=== PATIENT | male | born 1975 | race Caucasian/White ===

== ENCOUNTER 2021-04-28 09:26 | Emergency (ER) | payer SELFPAY ==
[~2021-04-28] VITALS: Ht 172.7 cm; Wt 70.5 kg
--- NOTE | 2021-04-28 09:39 | PHYS DOC ---
Adult General Chief Complaint Chief Complaint: LOWER EXT PAIN HPI HPI Patient is a 45-year-old male presenting via POV for bilateral lower extremity issues. This is a chronic issue. States that he has had approximately 1 year of lower extremity swelling and pain that has become increasingly more painful to walk on without any trauma. States he has not seen a primary care provider in the past 13 years and subsequently not on any medications. Does admit to ongoing methamphetamine abuse. Reports over the past 48 hours he has noticed increased redness to bilateral lower extremities with more pain with ambulation prompting him to come in for evaluation Review of Systems Review of Systems Fourteen body systems of review of systems have been reviewed. See HPI for pertinent positives and negative responses, other cardona all other systems are negative, non-pertinent or non-contributory Physical Exam Physical Exam Constitutional: Well developed, well nourished, no acute distress, non-toxic appearance. HENT: Normocephalic, atraumatic, bilateral external ears normal, oropharynx moist, no oral exudates, nose normal. Eyes: PERRLA, EOMI, conjunctiva normal, no discharge. Neck: Normal range of motion, no tenderness, supple, no stridor. Cardiovascular: Heart rate regular per monitor Lungs & Thorax: No respiratory distress or accessory muscle use, bilateral chest rise Abdomen: Abdomen soft, non-tender, bowel sounds present in all quadrants, no guarding or rebound, nonacute abdomen. Skin: Warm, dry, there is no streaking and/or migrating lymphangitis up bilateral lower extremities, there is generalized redness circumferentially a round entirety of bilateral lower extremities from toes proximately to superior portions of bilateral malleoli, no rash. Back: No tenderness, no CVA tenderness. Extremities: No cyanosis, no clubbing, ROM intact, 1+ pitting lower extremity edema bilaterally with tenderness on ventral aspects with otherwise 2+ DP and PT pulses. Neurologic: Alert and oriented X 3, grossly normal motor & sensory function, no focal deficits noted. Psychologic: Affect normal, judgement normal, mood normal. Current Patient Data Vital Signs Vital Signs Date Time Temp Pulse Resp B/P (MAP) Pulse Ox O2 Delivery O2 Flow Rate FiO2 04/28/21 09:45 97.9 114 20 145/94 (111) 98 Room Air Vital Signs Date Time Temp Pulse Resp B/P (MAP) Pulse Ox O2 Delivery O2 Flow Rate FiO2 04/28/21 09:45 97.9 114 20 145/94 (111) 98 Room Air Lab Results Laboratory Tests Test 04/28/21 10:40 White Blood Count 12.7 x10^3/uL Red Blood Count 4.62 x10^6/uL Hemoglobin 13.1 g/dL Hematocrit 39.5 % Mean Corpuscular Volume 85 fL Mean Corpuscular Hemoglobin 28 pg Mean Corpuscular Hemoglobin Concent 33 g/dL Red Cell Distribution Width 14.5 % Platelet Count 256 x10^3/uL Neutrophils (%) (Auto) 86 % Lymphocytes (%) (Auto) 7 % Monocytes (%) (Auto) 6 % Eosinophils (%) (Auto) 1 % Basophils (%) (Auto) 1 % Neutrophils # (Auto) 10.9 x10^3uL Lymphocytes # (Auto) 0.9 x10^3/uL Monocytes # (Auto) 0.7 x10^3/uL Eosinophils # (Auto) 0.1 x10^3/uL Basophils # (Auto) 0.1 x10^3/uL Sodium Level 133 mmol/L Potassium Level 3.9 mmol/L Chloride Level 97 mmol/L Carbon Dioxide Level 28 mmol/L Anion Gap 8 Blood Urea Nitrogen 24 mg/dL Creatinine 1.1 mg/dL Estimated GFR (Cockcroft-Gault) 73.1 Glucose Level 90 mg/dL Calcium Level 8.8 mg/dL C-Reactive Protein 61.3 mg/L EKG EKG [] Radiology/Procedures Radiology/Procedures EXAM: XR BILAT FEET 3 VIEWS 04/28/2021 10:46 AM CLINICAL INDICATION: Edema, ventral foot pain COMPARISON: None TECHNIQUE: AP, oblique, and lateral views of the right left foot. FINDINGS: There are no acute fractures. There is mild hallux valgus bilaterally. Small marginal erosions of both great toe proximal phalanges at the IP joints. Joint spaces are maintained. Bone mineralization is normal. There are bilateral accessory navicular ossicles. Left os peroneum. Mild dorsal soft tissue swelling of the forefeet. There is sequela of old right lateral ankle injury. IMPRESSION: 1. No acute osseous abnormality. 2. Erosions at the great toe IP joint bilaterally suspicious for inflammatory or crystalline arthropathy. 3. Mild dorsal soft tissue swelling of the forefeet. Electronically signed by: Elsie Garcia MD (04/28/2021 10:57 AM) [id number] Heart Score C/O Chest Pain: No Risk Factors: Risk Factors: DM, Current or recent (<one month) smoker, HTN, HLP, family history of CAD, obesity. Risk Scores: Risk Factors: DM, Current or recent (<one month) smoker, HTN, HLP, family history of CAD, obesity. Course & Med Decision Making Course & Med Decision Making ABCs unremarkable HPI physical exam and comprehensive ER work-up nonconcerning for any emergent or surgical issues Joint decision made to start antibiotics with close PCP follow-up for further outpatient work-up given history of illicit drug abuse and bilateral lower extremity edema. Discussed likely need for outpatient echocardiogram etc. Strict return precautions discussed at length prior to ER departure Angus Disclaimer Angus Disclaimer This electronic medical record was generated, in whole or in part, using a voice recognition dictation system. Departure Departure: Impression: Primary Impression: Cellulitis Additional Impressions: Lower extremity pain Lower extremity edema Disposition: HOME / SELF CARE / HOMELESS Condition: STABLE Referrals: PCP,LORAINE (PCP) Additional Instructions: You were seen for an infection called cellulitis. You should erica the area of redness when you get home. If your redness spreads past the marked area at 24 hours you should have it evaluated again. You do not have an abscess right now but you could develop one. If so you will need to have it drained. You should return to the ED immediately if you develop worsening pain, fever, swelling, redness, drainage, any sign of abscess, or any other new or concerning symptoms. Take the entire course of antibiotics as prescribed. Scripts Naproxen (NAPROXEN) 500 Mg Tablet 1 TAB PO BID for pain for 5 Days, #10 TAB 0 Refills Prov: IGLESIA SCHUSTER DO 04/28/21 Cephalexin (CEPHALEXIN) 500 Mg Tablet 1 TAB PO QID for CELLULITIS, #40 TAB Prov: IGLESIA SCHUSTER DO 04/28/21 Problem Qualifiers IGLESIA SCHUSTER DO Apr 28, 2021 09:39
[2021-04-28 09:45] VITALS: BP 145/94
[2021-04-28 10:50] LABS: BASO # 0.1 x10^3/uL (0.0-0.2); BASO % 1 % (0-3); EOS # 0.1 x10^3/uL (0.0-0.7); EOS % 1 % (0-3); HEMATOCRIT 39.5 % (39.0-53.0); HEMOGLOBIN 13.1 g/dL (13.0-17.5); LYMPH # 0.9 x10^3/uL (1.0-4.8); LYMPH % 7 % (24-48); MEAN CORPUSCULAR HEMOGLOBIN 28 pg (25-35); MEAN CORPUSCULAR HGB CONC 33 g/dL (31-37); MEAN CORPUSCULAR VOLUME 85 fL (79-100); MONO # 0.7 x10^3/uL (0.0-1.1); MONO % 6 % (0-9); NEUT # 10.9 x10^3uL (1.8-7.7); NEUT % 86 % (31-73); PLATELET COUNT 256 x10^3/uL (140-400); RED BLOOD COUNT 4.62 x10^6/uL (4.30-5.70); RED CELL DISTRIBUTION WIDTH 14.5 % (11.5-14.5); WHITE BLOOD COUNT 12.7 x10^3/uL (4.0-11.0)
[2021-04-28 10:58] LABS: CALCIUM 8.8 mg/dL (8.5-10.1); CREATININE 1.1 mg/dL (0.7-1.3); GFR 73.1; POTASSIUM 3.9 mmol/L (3.5-5.1)
--- NOTE | 2021-04-28 10:59 | RAD ---
EXAM: XR BILAT FEET 3 VIEWS 04/28/2021 10:46 AM CLINICAL INDICATION: Edema, ventral foot pain COMPARISON: None TECHNIQUE: AP, oblique, and lateral views of the right left foot. FINDINGS: There are no acute fractures. There is mild hallux valgus bilaterally. Small marginal erosi ons of both great toe proximal phalanges at the IP joints. Joint spaces are maintained. Bone minerali zation is normal. There are bilateral accessory navicular ossicles. Left os peroneum. Mild dorsal sof t tissue swelling of the forefeet. There is sequela of old right lateral ankle injury. IMPRESSION: 1. No acute osseous abnormality. 2. Erosions at the great toe IP joint bilaterally suspicious for inflammatory or crystalline arthropa thy. 3. Mild dorsal soft tissue swelling of the forefeet. Electronically signed by: Elsie Garcia MD (04/28/2021 10:57 AM) [id number]
[2021-04-28 11:00] LABS: C REACTIVE PROTEIN 61.3 mg/L (0-3.3)
[2021-04-28] MEDS ORDERED: CEPH500T PO (11:42)
[2021-04-28] MEDS ORDERED: NAPR-514 PO (11:42)
[2021-04-28] MEDS ORDERED: CEPHALEXIN 250 MG CAPSULE PO ONE (11:45)
== END 2021-04-28 12:04 | disposition home or self-care (01) ==
LOC: ER 09:26
DX: L03.116 Cellulitis of left lower limb (principal); L03.115 Cellulitis of right lower limb; R60.0 Localized edema
CPT/HCPCS: 36415; 80048; 85025; 86140; 99284; 73630-50